=== PATIENT | female | born 1985 | race Caucasian/White ===

== ENCOUNTER 2017-05-14 01:57 | Emergency (ER) | payer OTHER ==
[2017-05-14 02:08] VITALS: BP 139/90; PULSE 74; TEMP 98.4; BMI 21.9
[2017-05-14] MEDS ORDERED: ACETAMINOPHEN 325 MG TABLET (FP) PO ONE (02:23)
--- NOTE | 2017-05-14 02:27 | PDOC ---
History of Present Illness - General Chief Complaint: Laceration Stated Complaint: LACERATION TO RT 5TH DIGIT FINGER Time Seen by Provider: 05/14/17 02:23 - History of Present Illness Initial Comments: This otherwise healthy 32-year-old woman presents with a laceration of the right fifth finger. The patient states that wineglass that she was holding fell and sharp edge of glass cut the finger. This occurred just prior to presentation. Patient reports copious bleeding with most bleeding controlled with direct pressure. No other injury sustained. She denies weakness or numbness of the injured finger. Last tetanus prophylaxis was approximately 5 years ago. Patient reports no problems with wound healing. No history of resistant organism infection or colonization. Past History - Past Medical History Allergies/Adverse Reactions: Allergies Allergy/AdvReac Type Severity Reaction Status Date / Time No Known Allergies Allergy Verified 05/14/17 01:59 Home Medications: Ambulatory Orders NK [No Known Home Medication] 05/14/17 Other medical history: denies - Immunization History Td Vaccination: Yes - Psycho/Social/Smoking Cessation Hx Anxiety: No Suicidal Ideation: No Smoking Status: No Smoking History: Never smoked Have you smoked in the past 12 months: No Number of Cigarettes Smoked Daily: 0 Hx Alcohol Use: Yes (tonight) Drug/Substance Use Hx: No Substance Use Type: Alcohol Review of Systems - Review of Systems Able to Perform ROS?: Yes Comments:: 12 point review of systems is negative except for what is noted in the history of present illness *Physical Exam - Vital Signs Last Vital Signs Temp Pulse Resp BP Pulse Ox 98.4 F 74 18 139/90 99 05/14/17 02:02 05/14/17 02:02 05/14/17 02:02 05/14/17 02:02 05/14/17 02:02 - Physical Exam Comments: GENERAL: Adult female, alert and oriented 3, in no acute distress HEAD: Normal with no signs of trauma. EXTREMITIES: Normal range of motion, no edema. No clubbing or cyanosis. No erythema, or tenderness. NEUROLOGICAL: Cranial nerves II through XII grossly intact. Normal speech. No focal neurological deficits. MUSCULOSKELETAL: Back non-tender to palpation, no CVA tenderness SKIN: Right upper extremityfifth finger :1 cm full-thickness flap laceration with narrow base, palmar aspect of middle phalanx No other injury present; motor and sensory function in intact in the finger. Remainder the extremity exam is normal Procedures - Laceration/Wound Repair Right 5th digit Wound Length: to 2.5 cm Wound Explored: clean Wound's Depth, Shape: flap Irrigated w/ Saline: Yes Betadine Prep: No (hibiclens/ethanol) Anesthesia: 1% Lidocaine Amount of Anesthetic (ccs): 1 Wound Repaired With: Sutures Suture Size/Type: 5:0 Number of Sutures: 3 Sterile Dressing Applied: Yes Splint Applied: No Progress: Area of wound cleansed with Hibiclens/ethanol solution and sterilely draped. 1 mL of 1% lidocaine infiltrated into the wound for local anesthesia. Wound irrigated with 40 mL of sterile normal saline. No evidence of foreign body or tendon involvement. Wound edges were carefully apposed and wound closed using 3 interrupted sutures of 5-0 nylon. The flap appeared pink with good capillary refill after repair. Bacitracin plus dry sterile dressing applied to the wound; this was followed by tube dressing. Patient tolerated the procedure well. *DC/Admit/Observation/Transfer Diagnosis at time of Disposition: Laceration of finger Qualifiers: Encounter type: initial encounter Finger: little finger Damage to nail status: without damage Foreign body presence: without foreign body Laterality: right Qualified Code(s): S61.216A - Laceration without foreign body of right little finger without damage to nail, initial encounter - Discharge Dispostion Disposition: HOME Condition at time of disposition: Stable - Patient Instructions Printed Discharge Instructions: How to Care for a Laceration After Repair Additional Instructions: Elevate right hand as much as possible over the next 24 hours Keep original dressing in place , as dry as possible, for 48 hours After original dressing removed, Band-Aid during the day/open at night Bacitracin/Neosporin ointment to wound daily Acetaminophen/ibuprofen/naproxen as needed for pain Return or see your doctor if area becomes red/swollen/painful Have sutures removed in one week
[2017-05-14] MEDS ORDERED: ACETAMINOPHEN 325 MG TABLET (FP) ONE (02:35)
== END 2017-05-14 02:42 | disposition home or self-care (01) ==
LOC: FER 01:57
PROC: 0HQFXZZ Repair Right Hand Skin, External Approach (ICD-10-PCS; principal; 2017-05-14)
DX: S61.216A Laceration without foreign body of right little finger without damage to nail, initial encounter (principal); W25.XXXA Contact with sharp glass, initial encounter; Y93.9 Activity, unspecified; Y92.9 Unspecified place or not applicable
CPT/HCPCS: 12001-25; 99282-25

== ENCOUNTER 2019-10-15 21:22 | Emergency (ER) | payer OTHER ==
[2019-10-15 21:36] VITALS: BMI 23.3
[2019-10-15] MEDS ORDERED: CYCLOBENZAPRINE HCL 10 MG TABLET (FP) PO ONE (23:12)
[2019-10-15] MEDS ORDERED: CYCLOBENZAPRINE HCL 10 MG TABLET (FP) ONE (23:14)
[2019-10-15 23:56] VITALS: BP 126/84; PULSE 81; TEMP 98.6
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
== END 2019-10-15 23:27 | disposition home or self-care (01) ==
LOC: FER 21:22
DX: S16.1XXA Strain of muscle, fascia and tendon at neck level, initial encounter (principal); S60.212A Contusion of left wrist, initial encounter; G89.29 Other chronic pain; F41.9 Anxiety disorder, unspecified; V43.52XA Car driver injured in collision with other type car in traffic accident, initial encounter; Y93.89 Activity, other specified; Y92.410 Unspecified street and highway as the place of occurrence of the external cause
CPT/HCPCS: 72050-TC-FY; 73090-TC-LT-FY; 73110-TC-LT-FY; 81025; 99283-25

== ENCOUNTER 2020-10-14 14:49 | Emergency (ER) | payer OTHER ==
[2020-10-14 15:01] VITALS: BP 124/83; PULSE 85; TEMP 99.3; BMI 23.5
[2020-10-14] MEDS ORDERED: IBUPROFEN 600 MG TABLET (FP) PO ONE (15:24)
[2020-10-14] MEDS ORDERED: IBUPROFEN 100 MG/5 ML UNIT DOSE CUPS PO ONE (15:25)
[2020-10-14] MEDS ORDERED: IBUPROFEN 100 MG/5 ML UNIT DOSE CUPS ONE (15:28)
== END 2020-10-14 16:35 | disposition short-term general hospital (02) ==
LOC: FER 14:49
DX: T23.102A Burn of first degree of left hand, unspecified site, initial encounter (principal)
CPT/HCPCS: 87070; 87880; 99284-25